=== PATIENT | male | born 1950 | race Caucasian/White ===

== ENCOUNTER 2017-02-01 21:17 | Emergency (ER) | payer MEDICARE ==
[2017-02-02 01:32] VITALS: BP 137/69
[2017-02-02] MEDS ORDERED: cefTRIAXone 1 GM Vial IM ONE (01:52)
[2017-02-02] MEDS ORDERED: Ibuprofen 800 MG Tab PO ONE (02:01)
--- NOTE | 2017-02-02 02:37 | EDM.PDOC ---
ED HPI GENERAL MEDICAL PROBLEM - General Chief Complaint: Fever Stated Complaint: FEVER HEADACHE Time Seen by Provider: 02/01/17 21:32 Source of Information: Reports: Patient History Limitations: Reports: No Limitations - History of Present Illness INITIAL COMMENTS - FREE TEXT/NARRATIVE: This gentleman comes in complaining of a fever for 3 days. The temperature has been up to 103. He feels lethargic and has generalized body aches. He does have some headache. He denies sore throat. He has just a little bit of cough which is nonproductive. He denies shortness of breath. There is no chest pain. He's a little bit nauseated but has not vomited. There are no urinary symptoms. His only medications are lisinopril and simvastatin. He's been outside a lot and is worried about ticks although he doesn't know of any tick bites Headache Pain Score (Numeric/FACES): 3 - Related Data Allergies Allergy/AdvReac Type Severity Reaction Status Date / Time No Known Allergies Allergy Verified 02/01/17 21:50 Home Meds: Home Meds Lisinopril 5 mg PO BEDTIME 02/01/17 [History] Simvastatin [Zocor] 10 mg PO BEDTIME 02/01/17 [History] Past Medical History Cardiovascular History: Reports: High Cholesterol, Hypertension Musculoskeletal History: Reports: Fracture Other Musculoskeletal History: Right leg Dermatologic History: Reports: Other (See Below) Other Dermatologic History: facial cyst - Past Surgical History GI Surgical History: Reports: Appendectomy Other Musculoskeletal Surgeries/Procedures:: right lower leg Social & Family History - Tobacco Use Smoking Status *Q: Never Smoker - Caffeine Use Caffeine Use: Reports: Coffee - Recreational Drug Use Recreational Drug Use: No ED ROS GENERAL - Review of Systems Review Of Systems: ROS reveals no pertinent complaints other than HPI. ED EXAM, SEPSIS - Physical Exam Exam: See Below Exam Limited By: No Limitations General Appearance: Alert, WD/WN, No Apparent Distress Eye Exam: Bilateral Eye: Normal Inspection Ears: Normal External Exam, Normal TMs Nose: Normal Inspection Throat/Mouth: Normal Inspection, Normal Oropharynx Head: Atraumatic Neck: Supple Respiratory/Chest: Lungs Clear Cardiovascular: Normal Peripheral Pulses, Regular Rate, Rhythm, No Murmur GI/Abdominal: Soft, Non-Tender Extremities: Normal Inspection Neurological: Alert, Oriented, CN II-XII Intact, No Motor/Sensory Deficits Psychiatric: Normal Affect Skin: Warm, Dry Lymphatic: Bilateral: No Adenopathy Course - Vital Signs Last Recorded V/S: Last Vital Signs Temp 38.6 C H 02/02/17 01:20 Pulse 66 02/02/17 01:20 Resp 20 02/02/17 01:20 BP 137/69 02/02/17 01:20 Pulse Ox 94 L 02/02/17 01:20 - Orders/Labs/Meds Orders: Active Orders 24 hr Category Date Time Status Chest 2V [CR] Urgent Exams 02/01/17 22:12 Taken CULTURE BLOOD [BC] Urgent Lab 02/01/17 22:20 Received CULTURE BLOOD [BC] Urgent Lab 02/01/17 22:30 Received CULTURE STREP A CONFIRMATION [RM] Stat Lab 02/01/17 22:34 Results EHRLICHIA CHAFFEENSIS, IGG&IGM [REF] Stat Lab 02/01/17 22:30 Received LYME AB SCREEN RFLX [REF] Urgent Lab 02/01/17 22:30 Received STREP SCRN A RAPID W CULT CONF [RM] Stat Lab 02/01/17 22:34 Results Blood Culture x2 Reflex Set [OM.PC] Urgent Oth 02/01/17 22:14 Ordered Labs: Laboratory Tests 02/01/17 02/01/17 02/01/17 Range/Units 22:30 22:30 22:34 WBC 6.8 (4.5-11.0) K/uL RBC 4.74 (4.30-5.90) M/uL Hgb 14.8 (12.0-15.0) g/dL Hct 43.2 (40.0-54.0) % MCV 91 (80-98) fL MCH 31 (27-31) pg MCHC 34 (32-36) % Plt Count 104 L (150-400) K/uL Neut % (Auto) 86 H (36-66) % Lymph % (Auto) 8 L (24-44) % Maverick % (Auto) 6 (2-6) % Eos % (Auto) 0 L (2-4) % Baso % (Auto) 0 (0-1) % Sodium 132 L (140-148) mmol/L Potassium 3.6 (3.6-5.2) mmol/L Chloride 97 L (100-108) mmol/L Carbon Dioxide 25 (21-32) mmol/L Anion Gap 13.6 (5.0-14.0) mmol/L BUN 22 H (7-18) mg/dL Creatinine 1.3 (0.8-1.3) mg/dL Est Cr Clr Drug Dosing 56.15 mL/min Estimated GFR (MDRD) 55 L (>60) Glucose 141 H (74-106) mg/dL Calcium 8.4 L (8.5-10.1) mg/dL Total Bilirubin 0.7 (0.2-1.0) mg/dL AST 60 H (15-37) U/L ALT 64 (12-78) U/L Alkaline Phosphatase 52 (46-116) U/L Total Protein 7.5 (6.4-8.2) g/dL Albumin 3.3 L (3.4-5.0) g/dL Globulin 4.2 H (2.3-3.5) g/dL Albumin/Globulin Ratio 0.8 L (1.2-2.2) Urine Color Yellow Urine Appearance Clear Urine pH 6.0 (4.5-8.0) Ur Specific [place] 1.015 (1.008-1.030) Urine Protein Trace (NEGATIVE) mg/dL Urine Glucose (UA) Normal (NEGATIVE) mg/dL Urine Ketones Negative (NEGATIVE) mg/dL Urine Occult Blood Trace (NEGATIVE) Urine Nitrite Negative (NEGAITVE) Urine Bilirubin Negative (NEGATIVE) Urine Urobilinogen 1 (NORMAL) mg/dL Ur Leukocyte Esterase Negative (NEGATIVE) Urine RBC 0-5 (0-5) Urine WBC 0-5 (0-5) Ur Epithelial Cells Rare Amorphous Sediment Not seen Urine Bacteria Moderate Urine Mucus Few Meds: Medications Discontinued Medications Generic Name Dose Route Start Last Admin Trade Name Freq PRN Reason Stop Dose Admin Ceftriaxone Sodium 1 gm 02/02/17 01:52 02/02/17 02:06 Rocephin IM 02/02/17 01:53 1 gm ONETIME ONE Administration Ibuprofen 800 mg 02/02/17 02:01 02/02/17 02:05 Motrin PO 02/02/17 02:02 800 mg ONETIME ONE Administration Lidocaine HCl 2.1 ml 02/02/17 02:00 02/02/17 02:06 Xylocaine-Mpf 1% INJECT 02/02/17 02:01 2.1 ml ONETIME ONE Administration Lidocaine HCl Confirm 07/10/17 01:57 02/02/17 02:06 Xylocaine-Mpf 1% Administered 02/02/17 01:58 Not Given Dose 5 ml .ROUTE .K-MED ONE - Radiology Interpretation Free Text/Narrative:: Chest x-ray seemed to show some increased densities in the right base probably right lower lobe this could indicate a pneumonia. - Re-Assessments/Exams Free Text/Narrative Re-Assessment/Exam: 02/02/17 04:55 Labs were reviewed with the patient. The white blood cell count is not increased however there is a slight left shift which is probably due to a decrease in lymphocytes which might suggest an early viral infection. I did send off test for Lyme and Ehrlychiosis. The patient received an injection of Rocephin 1 g IM. I'll put him on Ceftin that would cover a bacterial pneumonia as well as be effective against Lyme's. 02/02/17 04:56 Departure - Departure Time of Disposition: 02:34 Disposition: Home, Self-Care 01 Condition: Fair Clinical Impression: Fever - Discharge Information Instructions: Fever, Adult, [id number] Referrals: PCP,None [Primary Care Provider] - Forms: ED Department Discharge Additional Instructions: There might be a little bit of pneumonia in the bottom of your right lung. This is not certain. Your blood count was just slightly suggestive of a bacterial infection. Lyme's disease, and Ehrlichiosis tests were sent. These test generally don't have a lot of benefit in the early diagnosis of Lyme's disease. The antibiotic Ceftin is a good antibiotic for Lyme's disease. It also treats pneumonia. He received an injection of the antibiotic Rocephin which is similar to the Ceftin prescription Be sure to drink plenty of liquids take Tylenol or ibuprofen as needed for fever see your Dr. if no better in 2 or 3 days or return to the ER at any time if worse - My Orders Last 24 Hours: My Active Orders 02/01/17 22:12 Chest 2V [CR] Urgent 02/01/17 22:14 Blood Culture x2 Reflex Set [OM.PC] Urgent 02/01/17 22:20 CULTURE BLOOD [BC] Urgent 02/01/17 22:30 CULTURE BLOOD [BC] Urgent EHRLICHIA CHAFFEENSIS, IGG&IGM [REF] Stat LYME AB SCREEN RFLX [REF] Urgent 02/01/17 22:34 CULTURE STREP A CONFIRMATION [RM] Stat STREP SCRN A RAPID W CULT CONF [RM] Stat - Assessment/Plan Last 24 Hours: My Active Orders 02/01/17 22:12 Chest 2V [CR] Urgent 02/01/17 22:14 Blood Culture x2 Reflex Set [OM.PC] Urgent 02/01/17 22:20 CULTURE BLOOD [BC] Urgent 02/01/17 22:30 CULTURE BLOOD [BC] Urgent EHRLICHIA CHAFFEENSIS, IGG&IGM [REF] Stat LYME AB SCREEN RFLX [REF] Urgent 02/01/17 22:34 CULTURE STREP A CONFIRMATION [RM] Stat STREP SCRN A RAPID W CULT CONF [RM] Stat
--- NOTE | 2017-02-02 14:06 | CR ---
Chest 2V INDICATION: pain FINDINGS: Negative chest.
== END 2017-02-02 02:45 | disposition home or self-care (01) ==
LOC: JP.ED 21:17
DX: R50.9 Fever, unspecified (principal); E78.00 Pure hypercholesterolemia, unspecified; I10 Essential (primary) hypertension; Z90.49 Acquired absence of other specified parts of digestive tract
CPT/HCPCS: 36415; 71020; 80053; 81001; 85025; 86618; 86666; 87040; 87081; 87430; 99284; A9270; J0696; 99283